=== PATIENT | male | born 1965 | race Two or more races ===

== ENCOUNTER 2017-07-28 12:22 | Emergency (ER) | payer BC ==
[~2017-07-28] VITALS: Ht 172.7 cm; Wt 87.1 kg
[2017-07-28 12:53] VITALS: BP 160/110
[2017-07-28] MEDS ORDERED: Bacitracin Oint UD TOPIC ONE (13:00)
[2017-07-28] MEDS ORDERED: Lidocaine 1% MPF 10mg/ml 5ml INJ ONE (13:00)
[2017-07-28] MEDS ORDERED: BACITRACIN15 GM TOPIC (13:40)
[2017-07-28] MEDS ORDERED: IBUPROFEN600 MG ORAL (13:40)
[2017-07-28] MEDS ORDERED: Tetanus/Diptheria/Pertussis Vaccine 0.5ml Syr IM ONE (13:45)
[2017-07-28 13:55] VITALS: BP 140/72
--- NOTE | 2017-07-28 16:50 | Emergency Room Report ---
History of Present Illness General Chief Complaint: Laceration Source: Patient Present Illness [facility] The patient is a 51-year-old male presenting for left hand laceration. He states that he reached into a drawer today and a razor blade cut the ring finger. He noticed immediate pain and bleeding. Pain is now a 5 out of 10 throbbing sensation. He immediately cleaned the wound and applied dressing. He denies any numbness. Last tetanus shot is unknown. he denies any other injury or symptoms Allergies: Uncoded Allergies: CATS (Allergy, Unknown, 07/28/17) Patient History Past Medical History: see triage record Pertinent Family History: none Reviewed Nursing Documentation: PMH: Agreed; PSxH: Agreed Nursing Documentation-PMH Past Medical History: No History, Except For Hx Hypertension: Yes Hx Diabetes: Yes Review of Systems All Other Systems: negative except mentioned in HPI Physical Exam Vital Signs Date Time Temp Pulse Resp B/P (MAP) Pulse Ox O2 Delivery O2 Flow Rate FiO2 07/28/17 12:45 98.8 83 20 162/114 96 Room Air 98.8 Sp02 EP Interpretation: reviewed, normal General Appearance: no apparent distress, alert, GCS 15, non-toxic Head: normocephalic, atraumatic Musculoskeletal: back normal, gait/station normal, normal range of motion, non- tender Neurologic: alert, oriented x3, responsive, motor strength/tone normal, sensory intact, speech normal Psychiatric: judgement/insight normal, memory normal, mood/affect normal, no suicidal/homicidal ideation Skin: normal turgor, laceration - L 4th digit palmar surface distal to DIPJ Lymphatic: no adenopathy Procedures Laceration/Wound Repair Laceration/Wound Repair : Consent: Verbal Wound Location: upper extremity Wound's Depth, Shape: superficial, irregular Wound Length (cm): 3 Wound Explored: clean Irrigated w/ Saline (ccs): 100 Betadine Prep?: Yes Anesthesia: 1% Lidocaine Volume Anesthetic (ccs): 5 Wound Debrided: minimal Wound Repaired With: sutures Suture Size/Type: 4:0, nylon Number of Sutures: 4 Layer Closure?: No Sterile Dressing Applied?: Yes Splint Applied?: No Sling Applied?: No Patient Tolerated: Well Complications: None Medical Decision Making PA Attestation Dr. Aragon is my supervising physician. Patient management was discussed with my supervising physician Diagnostic Impression: Primary Impression: Finger laceration Qualified Codes: S61.315A - Laceration without foreign body of left ring finger with damage to nail, initial encounter ER Course The patient is a 51-year-old male presenting for left hand laceration. Ddx considered include but not limited to fracture, tendon/ligament injury, avulsion, nerve damage PE: NAD L hand: There is a 4 cm irregular laceration to the left fourth digit palmar surface distal to the DIP joint. Sensation is intact to light touch. Full active range of motion is intact. The wound was irrigated with normal saline and cleaned with betadine. A 27g needle was used to administer 5 mL of lidocaine w.o epi for local anaesthesia. 4 sutures were placed with 4-0 Nylon. The wound was well approximated and the patient tolerated the procedure well. The wound was then cleaned and bacitracin was applied. Suture instructions and return precautions given. Prescription for bacitracin given Last Vital Signs Date Time Temp Pulse Resp B/P (MAP) Pulse Ox O2 Delivery O2 Flow Rate FiO2 07/28/17 13:55 98.7 80 18 140/72 99 Room Air 98.7 Status: improved Disposition: HOME, SELF-CARE Condition: Improved Scripts Bacitracin (Bacitracin) 28.4 Gm Oint...g. 1 APPLIC TOPIC THREE TIMES A DAY, #28 GM Prov: MANJIT ALLEN P.A. 07/28/17 Ibuprofen* (MOTRIN*) 600 Mg Tablet 600 MG ORAL Q8H PRN for For Pain, #30 TAB 0 Refills Prov: TERYANIRA ASHTONY P.A. 07/28/17 Referrals: NOT CHOSEN [facility]/MD,REFERRING (PCP) Patient Instructions: Laceration Care, Adult Additional Instructions: I discussed my findings with the patient. All questions and concerns have been answered. Treatment and medication compliance have been addressed. I advised the patient that they need to follow up with PMD in 7-10 days for wound check and suture removal. If you are unable to see PMD, return to the ED in 7-10 days. Return to ED if pain remains or worsens, you notice discharge from the wound, the wound continues to bleed, the suture/s fall out, you notice a fever or chills, or for any reason. Patient is advised to keep the wound clean and apply an antibacterial ointment. Patient verbalized understanding of discharge instructions. TERZIAN,MANJIT P.A. Jul 28, 2017 16:50
== END 2017-07-28 13:55 | disposition home or self-care (01) ==
LOC: EMR 13:53
DX: S61.315A Laceration without foreign body of left ring finger with damage to nail, initial encounter (principal); Z23 Encounter for immunization; I10 Essential (primary) hypertension; E11.9 Type 2 diabetes mellitus without complications; Z91.048 Other nonmedicinal substance allergy status; W45.8XXA Other foreign body or object entering through skin, initial encounter; Y92.009 Unspecified place in unspecified non-institutional (private) residence as the place of occurrence of the external cause
CPT/HCPCS: 90471; 90715; 96372; 99284